=== PATIENT | male | born 1970 | race Caucasian/White ===

== ENCOUNTER 2016-07-26 07:33 | Day surgery (SDC) | payer OTHER ==
[2016-07-21 13:54] VITALS: BP 129/84
[2016-07-25 10:48] LABS: HEMOGLOBIN 16.6 g/dL (13.7-18.0)
[~2016-07-26] VITALS: Ht 175.3 cm; Wt 119.0 kg
[~2016-07-26 07:33] MED LIST: ALBU18HF INH; BUPIVACAINE/PF-EPI 0.5% 1:200K ONE; CELE200C PO; GABA300C10 PO; LIDOCAINE/PF 1%-EPI 1:200K, 30ML ONE; LIDOCAINE/PF 1.5%-EPI 1:200K, 30ML ONE; MOME13HF2 IH; OXYC1TAB7 PO; THROMBIN 5,000 UNIT VIAL TP ONE
[2016-07-26] MEDS ORDERED: LACTATED RINGERS 1,000 ML IV SCH (08:00)
[2016-07-26 08:03] VITALS: BP 129/84
[2016-07-26] MEDS ORDERED: ALBUTEROL SULFATE 2.5 MG/3 ML ONE (08:53)
[2016-07-26] MEDS ORDERED: FENTANYL PF 250 MCG/5ML ONE (08:54)
[2016-07-26] MEDS ORDERED: MIDAZOLAM 1 MG/ML, 2ML ONE (08:54)
[2016-07-26] MEDS ORDERED: ALBUTEROL/IPRATROPIUM 2.5MG/0.5MG, 3 ML NEB ONE (09:00)
[2016-07-26] MEDS ORDERED: ALBUTEROL SULFATE 2.5 MG/3 ML NPPB ONE (09:00)
[2016-07-26] MEDS ORDERED: HYDROcodone/APAP 7.5-325MG/15ML UDC PO PRN (09:30)
[2016-07-26] MEDS ORDERED: FENTANYL PF 100 MCG/2ML IV PRN (09:30)
[2016-07-26] MEDS ORDERED: MEPERIDINE/PF 25MG/0.5ML IVPush PRN (09:30)
[2016-07-26] MEDS ORDERED: PROMETHAZINE 25 MG/ML, 1ML IV PRN (09:30)
[2016-07-26] MEDS ORDERED: ACETAMINOPHEN 325 MG TABLET PO PRN (09:30)
[2016-07-26] MEDS ORDERED: ALBUTEROL/IPRATROPIUM 2.5MG/0.5MG, 3 ML NPPB PRN (09:30)
[2016-07-26] MEDS ORDERED: ONDANSETRON 2MG/ML, 2ML IVPush PRN (09:30)
[2016-07-26] MEDS ORDERED: OXYcodone 5 MG/5 ML ORAL.SOL UDC PO PRN (09:30)
[2016-07-26] MEDS ORDERED: MIDAZOLAM 1 MG/ML, 2ML IV PRN (09:30)
[2016-07-26] MEDS ORDERED: HYDROmorphone 1 MG/ML, 1ML IV PRN (09:30)
[2016-07-26] MEDS ORDERED: OXYcodone/APAP 10/325MG TABLET PO PRN (11:00)
[2016-07-26] MEDS ORDERED: OXYcodone/APAP 10/325MG TABLET ONE (11:01)
[2016-07-26] MEDS ORDERED: ALBUTEROL/IPRATROPIUM 2.5MG/0.5MG, 3 ML NPPB SCH (20:00)
== END 2016-07-26 17:00 | disposition home or self-care (01) ==
LOC: OUT 07:33
PROVIDERS: ATTEND Orthopaedic Surgery Orthopaedic Surgery of the Spine
DX: M51.17 Intervertebral disc disorders with radiculopathy, lumbosacral region (principal); Z53.8 Procedure and treatment not carried out for other reasons; J45.909 Unspecified asthma, uncomplicated; E66.01 Morbid (severe) obesity due to excess calories; Z68.38 Body mass index [BMI] 38.0-38.9, adult; F17.210 Nicotine dependence, cigarettes, uncomplicated; Z86.718 Personal history of other venous thrombosis and embolism
CPT/HCPCS: 36415; 71010; 85025; 93970; 94640; J2250; J7120; J3010; J3490; J7613; J7620

== ENCOUNTER 2016-07-26 11:47 | Inpatient (IN) | payer OTHER ==
[~2016-07-26] VITALS: Ht 175.3 cm; Wt 114.0 kg
[~2016-07-26 11:47] MED LIST changes: -BUPIVACAINE/PF-EPI 0.5% 1:200K ONE; -LIDOCAINE/PF 1%-EPI 1:200K, 30ML ONE; -LIDOCAINE/PF 1.5%-EPI 1:200K, 30ML ONE; -THROMBIN 5,000 UNIT VIAL TP ONE
[2016-07-26] MEDS ORDERED: ALBUTEROL/IPRATROPIUM 2.5MG/0.5MG, 3 ML NPPB ONE (12:30)
[2016-07-26] MEDS ORDERED: ALBUTEROL/IPRATROPIUM 2.5MG/0.5MG, 3 ML ONE (12:39)
[2016-07-26 12:59] LABS: HEMOGLOBIN 15.8 g/dL (13.7-18.0)
[2016-07-26 13:12] LABS: ASPARTATE AMINO TRANSFERASE 22 U/L (15-37); BLOOD UREA NITROGEN 17 mg/dL (7-18)
[2016-07-26] MEDS ORDERED: BISACODYL 10 MG SUPP PR PRN (14:30)
[2016-07-26] MEDS ORDERED: POLYETHYLENE GLYCOL 17 GM PACKET PO PRN (14:30)
[2016-07-26] MEDS ORDERED: ONDANSETRON 2MG/ML, 2ML IVP PRN (14:30)
[2016-07-26] MEDS ORDERED: DOCUSATE 100 MG CAPSULE PO PRN (14:30)
[2016-07-26] MEDS ORDERED: GUAIFENESIN/DM 200-20MG, 10ML UDC PO PRN (14:30)
[2016-07-26] MEDS ORDERED: ONDANSETRON ODT 4 MG PO PRN (14:30)
[2016-07-26] MEDS ORDERED: OMNIPAQUE 350 MG/ML, 150 ML BOTTLE ONE (15:28)
[2016-07-26] MEDS: HEPARIN 5,000 UNITS/ML, 1ML SQ SCH ×2 (16:30→20:27)
[2016-07-26] MEDS: NICOTINE 7 MG/24 HR PATCH.TD24 TD SCH (16:34)
[2016-07-26] MEDS: GABAPENTIN 300 MG CAPSULE PO SCH ×2 (17:18→20:27)
[2016-07-26] MEDS: OXYcodone/APAP 10/325MG TABLET PO PRN ×2 (17:19→20:33)
[2016-07-26 17:22] VITALS: BP 126/77
[2016-07-26] MEDS: ALBUTEROL SULFATE 2.5 MG/3 ML HHN PRN (19:25)
[2016-07-26] MEDS: SODIUM CHLORIDE FLUSH 10ML SYR IVF SCH (20:28)
[2016-07-26 20:36] VITALS: BP 133/77
[2016-07-27 01:58] VITALS: BP 132/93
[2016-07-27] MEDS: OXYcodone/APAP 10/325MG TABLET PO PRN ×4 (03:08→23:57)
[2016-07-27] MEDS: ALBUTEROL SULFATE 2.5 MG/3 ML HHN PRN (04:35)
[2016-07-27] MEDS: HEPARIN 5,000 UNITS/ML, 1ML SQ SCH ×3 (05:18→20:09)
[2016-07-27 06:34] LABS: BLOOD UREA NITROGEN 18 mg/dL (7-18)
[2016-07-27] MEDS: ALBUTEROL SULFATE 2.5 MG/3 ML NPPB SCH ×4 (06:51→19:27)
[2016-07-27 07:41] VITALS: BP 135/81
[2016-07-27] MEDS: GABAPENTIN 300 MG CAPSULE PO SCH ×3 (08:06→20:09)
[2016-07-27] MEDS: SODIUM CHLORIDE FLUSH 10ML SYR IVF SCH ×2 (08:06→20:09)
[2016-07-27] MEDS: FLUTICASONE/VILANTEROL 100-25MCG/INH INH SCH (09:00)
[2016-07-27] MEDS ORDERED: FLUTICASONE FUROATE 200MCG/INH INH SCH (09:00)
[2016-07-27 13:20] VITALS: BP 133/66
[2016-07-27] MEDS: NICOTINE 7 MG/24 HR PATCH.TD24 TD SCH (16:28)
[2016-07-27 20:13] VITALS: BP 132/83
[2016-07-28 03:00] VITALS: BP 137/79
[2016-07-28] MEDS: HEPARIN 5,000 UNITS/ML, 1ML SQ SCH ×2 (04:34→12:30)
[2016-07-28] MEDS: ALBUTEROL SULFATE 2.5 MG/3 ML NPPB SCH ×3 (07:04→14:01)
[2016-07-28 07:50] VITALS: BP 133/85
[2016-07-28] MEDS: FLUTICASONE/VILANTEROL 100-25MCG/INH INH SCH (09:00)
[2016-07-28] MEDS: GABAPENTIN 300 MG CAPSULE PO SCH (09:10)
[2016-07-28] MEDS: SODIUM CHLORIDE FLUSH 10ML SYR IVF SCH (09:10)
[2016-07-28] MEDS: OXYcodone/APAP 10/325MG TABLET PO PRN ×2 (09:14→15:06)
[2016-07-28] MEDS ORDERED: METH4TAB2 PO (14:20)
[2016-07-28 14:28] VITALS: BP 125/81
[2016-07-28 15:00] VITALS: BP 138/89
== END 2016-07-28 16:20 | disposition home or self-care (01) | DRG 189 ==
LOC: ED 13:14 → EDIP 13:37 → 4NOR 14:38 → DCLOUNGE 07-28 15:43
PROVIDERS: ADMIT Internal Medicine; ATTEND Family Medicine
DX: J96.01 Acute respiratory failure with hypoxia (principal); J45.901 Unspecified asthma with (acute) exacerbation; D72.829 Elevated white blood cell count, unspecified; M51.16 Intervertebral disc disorders with radiculopathy, lumbar region; F17.210 Nicotine dependence, cigarettes, uncomplicated; Z80.9 Family history of malignant neoplasm, unspecified; Z79.899 Other long term (current) drug therapy
CPT/HCPCS: 36415; 71275; 73701; 80048; 80053; 85025; 85379; 93005; 94640; J1644; J7613; Q9967; J7512

== ENCOUNTER → 2016-10-20 | Outpatient (CLI) | payer OTHER ==
[~2016-10-20] MED LIST changes: +CROM13SP3 NS; +IBUP-1222 PO; +METH4TAB2 PO; +OXYC1TAB9 PO
[2016-10-20 11:44] LABS: ASPARTATE AMINO TRANSFERASE 35 U/L (15-37); BLOOD UREA NITROGEN 19 mg/dL (7-18)
== END | disposition home or self-care (01) ==
LOC: STAR 09:49
PROVIDERS: ATTEND Orthopaedic Surgery Orthopaedic Surgery of the Spine
DX: Z01.818 Encounter for other preprocedural examination (principal); M51.26 Other intervertebral disc displacement, lumbar region; M51.27 Other intervertebral disc displacement, lumbosacral region; M54.17 Radiculopathy, lumbosacral region; M48.06 Spinal stenosis, lumbar region; R79.1 Abnormal coagulation profile
CPT/HCPCS: 36415; 80053; 81003; 85025; 85610; 85651; 85730; 93005

== ENCOUNTER 2016-11-01 08:42 | Day surgery (SDC) | payer OTHER ==
[~2016-11-01] VITALS: Ht 177.8 cm; Wt 122.5 kg
[~2016-11-01 08:42] MED LIST changes: +BUPIVACAINE/PF-EPI 0.25% 1:200K ONE; +BUPIVACAINE/PF-EPI 0.5% 1:200K ONE; +LIDOCAINE 0.5%-EPI 1:200K, 50ML ONE; +THROMBIN 5,000 UNIT VIAL TP ONE; +VANCOMYCIN 1,000 MG ONE
[2016-11-01] MEDS ORDERED: LACTATED RINGERS 1,000 ML IV SCH (09:17)
[2016-11-01] MEDS ORDERED: MIDAZOLAM 1 MG/ML, 2ML ONE (09:43)
[2016-11-01] MEDS ORDERED: FENTANYL PF 250 MCG/5ML ONE ×2 (09:43→12:02)
[2016-11-01 09:47] VITALS: BP 137/82
[2016-11-01] MEDS ORDERED: ALBUTEROL SULFATE 2.5 MG/3 ML NPPB PRN (11:30)
[2016-11-01] MEDS ORDERED: PROMETHAZINE 25 MG/ML, 1ML IV PRN (11:30)
[2016-11-01] MEDS ORDERED: METOCLOPRAMIDE 5 MG/ML, 2ML IV PRN (11:30)
[2016-11-01] MEDS ORDERED: FENTANYL PF 100 MCG/2ML IV PRN (11:30)
[2016-11-01] MEDS ORDERED: ACETAMINOPHEN 325 MG TABLET PO PRN (11:30)
[2016-11-01] MEDS ORDERED: OXYcodone 5 MG/5 ML ORAL.SOL UDC PO PRN (11:30)
[2016-11-01] MEDS ORDERED: ONDANSETRON 2MG/ML, 2ML IVPush PRN (11:30)
[2016-11-01] MEDS ORDERED: MEPERIDINE/PF 25MG/0.5ML IVPush PRN (11:30)
[2016-11-01] MEDS ORDERED: HYDROmorphone 1 MG/ML, 1ML IV PRN (11:30)
[2016-11-01] MEDS ORDERED: GENTAMICIN 80 MG/2 ML ONE (11:47)
[2016-11-01] MEDS ORDERED: BUPIVACAINE/PF 0.25% ONE ×2 (12:31→13:54)
[2016-11-01] MEDS ORDERED: hydrALAzine 20 MG/ML, 1ML ONE (14:18)
[2016-11-01] MEDS: hydrALAzine 20 MG/ML, 1ML IV PRN ×2 (14:20→14:44)
[2016-11-01] MEDS ORDERED: ALBUTEROL SULFATE 2.5 MG/3 ML ONE (14:23)
[2016-11-01] MEDS: LABETALOL 5MG/ML, 20ML IV PRN ×3 (14:57→15:25)
[2016-11-01] MEDS ORDERED: KETOROLAC 30 MG/1 ML ONE ×2 (15:00→15:07)
[2016-11-01] MEDS ORDERED: KETOROLAC 30 MG/1 ML IM STA (15:04)
[2016-11-01] MEDS ORDERED: DEXAMETHASONE 4 MG/ML, 5ML ONE (15:07)
[2016-11-01] MEDS ORDERED: PROPOFOL 10 MG/ML, 20ML ONE (15:07)
[2016-11-01] MEDS ORDERED: GLYCOPYRROLATE 0.2MG/1ML ONE (15:07)
[2016-11-01] MEDS ORDERED: ROCURONIUM 10 MG/ML ONE (15:07)
[2016-11-01] MEDS ORDERED: CEFAZOLIN 1,000 MG ONE (15:07)
[2016-11-01] MEDS ORDERED: NEOSTIGMINE 1 MG/ML, 10ML ONE (15:07)
[2016-11-01] MEDS ORDERED: ACETAMINOPHEN 650 MG/20.3 ML UDC ONE (15:31)
[2016-11-01] MEDS ORDERED: OXYcodone 5 MG/5 ML ORAL.SOL UDC ONE (15:31)
== END 2016-11-01 18:17 | disposition home or self-care (01) ==
LOC: OUT 08:42
PROVIDERS: ATTEND Orthopaedic Surgery Orthopaedic Surgery of the Spine
DX: M48.07 Spinal stenosis, lumbosacral region (principal); M41.86 Other forms of scoliosis, lumbar region; M47.26 Other spondylosis with radiculopathy, lumbar region; E66.01 Morbid (severe) obesity due to excess calories; Z68.38 Body mass index [BMI] 38.0-38.9, adult; J45.909 Unspecified asthma, uncomplicated; G47.33 Obstructive sleep apnea (adult) (pediatric); Z87.891 Personal history of nicotine dependence; J44.9 Chronic obstructive pulmonary disease, unspecified
CPT/HCPCS: 63030; 63035; 72100; 94640; J0360; J0690; J1100; J1580; J1885; J2250; J2704; J2710; J3010; J3490; J7120; J3370; J7613

== ENCOUNTER 2016-11-03 18:33 | Emergency (ER) | payer OTHER ==
[~2016-11-03] VITALS: Ht 175.3 cm; Wt 125.0 kg
[~2016-11-03 18:33] MED LIST changes: -BUPIVACAINE/PF-EPI 0.25% 1:200K ONE; -BUPIVACAINE/PF-EPI 0.5% 1:200K ONE; -LIDOCAINE 0.5%-EPI 1:200K, 50ML ONE; -THROMBIN 5,000 UNIT VIAL TP ONE; -VANCOMYCIN 1,000 MG ONE
[2016-11-03] MEDS ORDERED: DIAZEPAM 5 MG/ML, 2ML IVPush ONE (19:00)
[2016-11-03] MEDS ORDERED: SODIUM CHLORIDE 0.9% 1,000ML IV ONE (19:00)
[2016-11-03] MEDS ORDERED: HYDROmorphone 1 MG/ML, 1ML IVPush PRN (19:00)
[2016-11-03] MEDS ORDERED: KETOROLAC 30 MG/1 ML IVPush ONE (19:00)
[2016-11-03] MEDS ORDERED: ONDANSETRON 2MG/ML, 2ML IVPush ONE (19:00)
[2016-11-03] MEDS ORDERED: SODIUM CHLORIDE FLUSH 10ML SYR IVF ONE (19:00)
[2016-11-03] MEDS ORDERED: HYDROmorphone 1 MG/ML, 1ML ONE (19:06)
[2016-11-03] MEDS ORDERED: KETOROLAC 30 MG/1 ML ONE (19:07)
[2016-11-03] MEDS ORDERED: ONDANSETRON 2MG/ML, 2ML ONE ×2 (19:07→23:17)
[2016-11-03] MEDS ORDERED: DIAZEPAM 5 MG TABLET ONE (19:07)
[2016-11-03] MEDS ORDERED: DIAZEPAM 5 MG TABLET PO ONE (19:30)
[2016-11-03 19:45] LABS: BLOOD UREA NITROGEN 18 mg/dL (7-18)
[2016-11-03] MEDS ORDERED: GADOBUTROL 10 MMOL/10 ML PFS ONE (20:23)
[2016-11-03 23:10] VITALS: BP 135/84
[2016-11-03] MEDS ORDERED: MORPHINE SULFATE 4 MG/ML, 1ML ONE (23:17)
== END 2016-11-03 23:13 | disposition home or self-care (01) ==
LOC: ED 19:22
DX: M51.36 Other intervertebral disc degeneration, lumbar region (principal); M51.26 Other intervertebral disc displacement, lumbar region; R60.0 Localized edema; J45.909 Unspecified asthma, uncomplicated
CPT/HCPCS: 36415; 72158; 80048; 82040; 85025; 93970; 96361; 96374; 96375; 99285; A9585; J1170; J1885; J2405; J7030

== ENCOUNTER 2020-03-25 12:20 | Emergency (ER) | payer OTHER ==
[~2020-03-25] VITALS: Ht 175.3 cm; Wt 132.2 kg
[~2020-03-25 12:20] MED LIST changes: -CROM13SP3 NS; +CROM13SP5 NS; +OXYC1TAB18 PO; -OXYC1TAB9 PO
--- NOTE | 2020-03-25 13:10 | NUR ---
DR LEMUS AT BS FOR EXAM
[2020-03-25] MEDS ORDERED: HYDROcodone/APAP 10/325 MG TABLET ONE (13:24)
[2020-03-25] MEDS ORDERED: METHOCARBAMOL 750 MG TABLET ONE (13:24)
[2020-03-25] MEDS ORDERED: HYDROcodone/APAP 10/325 MG TABLET PO ONE (13:30)
[2020-03-25] MEDS ORDERED: METHOCARBAMOL 750 MG TABLET PO ONE (13:30)
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
--- NOTE | 2020-03-25 13:47 | NUR ---
TO RADIOLOGY PER MEHDI
--- NOTE | 2020-03-25 15:17 | NUR ---
PT STANDING IN ROOM. REPORTS MINIMAL IMPROVEMENT IN PAIN.
[2020-03-25 15:18] VITALS: BP 127/82
--- NOTE | 2020-03-25 15:21 | NUR ---
O2 SAT 89%RA. PT USED OWN INHALER. PER BROTHER, PT USED INHALER ABOUT 20 MINS AGO. PT DENIES SOB, DIZZINESS, LIGHTHEADEDNESS. REPORTS HE USES CPAP. O2 SAT INCREASES TO 93% WITH DEEP BREATHING
[2020-03-25] MEDS ORDERED: ALBUTEROL/IPRATROPIUM 2.5MG/0.5MG, 3 ML NEB ONE (16:00)
[2020-03-25] MEDS ORDERED: ALBUTEROL/IPRATROPIUM 2.5MG/0.5MG, 3 ML ONE ×2 (16:00→16:01)
--- NOTE | 2020-03-25 16:16 | NUR ---
PT FULLY DRESSED. TROY INITIATED.
== END 2020-03-25 16:54 | disposition home or self-care (01) ==
LOC: ED 13:00
DX: S39.012A Strain of muscle, fascia and tendon of lower back, initial encounter (principal); S30.0XXA Contusion of lower back and pelvis, initial encounter; G89.29 Other chronic pain; J45.909 Unspecified asthma, uncomplicated; F17.210 Nicotine dependence, cigarettes, uncomplicated; W19.XXXA Unspecified fall, initial encounter; Y93.89 Activity, other specified; Y92.488 Other paved roadways as the place of occurrence of the external cause; Y99.8 Other external cause status
CPT/HCPCS: 72110; 94640; 99283